=== PATIENT | male | born 1940 | race Caucasian/White ===

== ENCOUNTER 2016-10-18 12:41 | Emergency (ER) | payer OTHER ==
[~2016-10-18] VITALS: Ht 188 cm; Wt 92.5 kg
[~2016-10-18 12:41] MED LIST: ADVIL,NUPRIN,M200 MG PO; ALTOPREV20 MG PO; AMLODIPINE BESYL5 MG PO; ASPIR-LOW81 MG PO; BUPROPION XL300 MG PO; CIALIS20 MG PO; CO Q-1010 MG PO; CRESTOR10 MG PO; CYANOCOBALAM1000 MCG PO; DAILY VALUE1 EACH PO; ELIQUIS5 MG PO; FISH OIL 1,001000 M1 PO; LANSOPRAZOLE30 MG PO; METOPROLOL SUCC25 MG PO; OMEGA-31000 M1 PO; TAMSULOSIN HCL0.4 MG PO; TRAMADOL HCL50 MG PO; VALSARTAN-HCTZ1 EAC3 PO; VITAMIN D1000 INTUN PO
[2016-10-18 12:51] VITALS: BP 108/61
== END 2016-10-18 15:52 | disposition home or self-care (01) ==
LOC: EME 12:41
DX: F34.1 Dysthymic disorder (principal); E78.5 Hyperlipidemia, unspecified; I10 Essential (primary) hypertension; Z86.711 Personal history of pulmonary embolism; Z87.891 Personal history of nicotine dependence
CPT/HCPCS: 90839; 99281; 99283